=== PATIENT | male | born 1940 | race Caucasian/White ===

== ENCOUNTER 2019-09-22 19:27 | Emergency (ER) | payer MEDICARE, OTHER ==
[~2019-09-22] VITALS: Ht 167.6 cm; Wt 98.9 kg
[~2019-09-22 19:27] MED LIST: ASPI325; ASPI81CH PO; ATEN50; ATOR40TA PO; ATOR80; BENA20; CARV25 PO; CARV3.125 PO; CHLO25B PO; DOXA2; DOXA4 PO; FISH1000 PO; IRBE150 PO; IRON; LISI5 PO; METF500 PO; MULVITMIND PO; ROSU10TA PO; UBID100 PO
[2019-09-22] MEDS ORDERED: METF500 PO (19:51)
[2019-09-22] MEDS ORDERED: Prinivil10 MG PO (19:51)
[2019-09-22] MEDS ORDERED: CHLO25B PO (19:51)
[2019-09-22] MEDS ORDERED: ATOR80 PO (19:51)
[2019-09-22] MEDS ORDERED: FISH OIL 1,001000 MG PO (19:52)
[2019-09-22] MEDS ORDERED: CARV25 PO (19:52)
[2019-09-22] MEDS ORDERED: Aspir 8181 MG PO (19:52)
[2019-09-22] MEDS ORDERED: CENTRUM SILVER1 EAC2 PO (19:53)
[2019-09-22] MEDS ORDERED: IRON PO (19:53)
[2019-09-22] MEDS ORDERED: COQ-10100 MG PO (19:53)
[2019-09-22 20:09] LABS: Source, Urine Clean Catch
[2019-09-22 20:15] LABS: Blood, Urine 5+ (Neg); Glucose Qualitative, Urine Neg (Neg); Ketones, Urine 1+ (Neg); Leukocyte Esterase, Urine 3+ (Neg); Nitrite, Urine Pos (Neg); Protein, Urine 3+ (Neg); Specific Gravity, Urine 1.025 (1.003-1.022); Urobilinogen, Urine 1+ (Normal)
[2019-09-22 20:22] LABS: Appearance, Urine Cloudy (Clear); Bilirubin, Urine 1+ (Neg); Color, Urine Amber (P-Yellow); White Blood Cells, Urine TNTC /hpf (0-5)
[2019-09-22 20:23] LABS: Bacteria Many /hpf; Squamous Epithelial Cells Rare /hpf (Few)
[2019-09-22] MEDS ORDERED: CEPH500 PO (20:57)
[2019-09-22] MEDS ORDERED: Pyridium100 MG PO (20:57)
== END 2019-09-22 21:20 | disposition home or self-care (01) ==
LOC: ER 19:27
PROVIDERS: Emergency Medicine
DX: N30.90 Cystitis, unspecified without hematuria (principal); I10 Essential (primary) hypertension; E11.9 Type 2 diabetes mellitus without complications; I25.2 Old myocardial infarction; Z79.899 Other long term (current) drug therapy; Z79.84 Long term (current) use of oral hypoglycemic drugs; Z79.82 Long term (current) use of aspirin
CPT/HCPCS: 81001; 87077; 87086; 87186; 99284; A9270-GY